=== PATIENT | male | born 1965 | race Caucasian/White ===

== ENCOUNTER 2017-01-11 13:31 | Inpatient (IN) | payer OTHER ==
[~2017-01-11] VITALS: Ht 175.3 cm; Wt 102.9 kg
[~2017-01-11 13:31] MED LIST: ASPIRIN 325 MG TAB PO SCH
[2017-01-11] MEDS ORDERED: METF10004 PO (13:50)
[2017-01-11] MEDS ORDERED: PRAV40TA2 PO (13:50)
[2017-01-11] MEDS ORDERED: RAMI1.25 PO (13:50)
[2017-01-11] MEDS ORDERED: PRAV10TA4 PO (13:50)
[2017-01-11 15:54] LABS: BASO # 0.1 K/mm3 (0.0-0.2); BASO % 0.9 % (0.0-1.0); EOS # 0.1 K/mm3 (0.0-0.50); EOS % 0.9 % (0.0-3.0); LARGE UNSTAINED CELL # 0.1 K/mm3 (0.0-0.4); LYMPH # 1.2 K/mm3 (1.5-4.5); LYMPH % 11.2 % (24.0-44.0); MEAN CORPUSCULAR HEMOGLOBIN 29.5 pg (27.0-33.0); MEAN CORPUSCULAR HGB CONC 32.9 g/dl (32.0-36.5); MEAN CORPUSCULAR VOLUME 89.7 fl (80.0-96.0); MONO # 0.3 K/mm3 (0.0-0.8); MONO % 2.9 % (0.0-5.0); NEUTROPHILS % 83.1 % (36.0-66.0); PLATELET COUNT, AUTOMATED 244 k/mm3 (150-450); RED CELL DISTRIBUTION WIDTH 13.4 % (11.5-14.5); WHITE BLOOD COUNT 9.6 K/mm3 (4.0-10.0)
[2017-01-11] MEDS ORDERED: IBUPOTC PO (15:56)
[2017-01-11] MEDS ORDERED: RAMI25CA PO (15:56)
[2017-01-11] MEDS ORDERED: PRAV20TA2 PO (15:56)
[2017-01-11] MEDS ORDERED: METF-415 PO (15:56)
[2017-01-11] MEDS ORDERED: ASPI1TAB PO (15:56)
[2017-01-11] MEDS ORDERED: DEXTROSE 50% 50 ML SYRINGE IV PRN (16:00)
[2017-01-11] MEDS ORDERED: ASPIRIN 81 MG CHEW TABLET PO ONE (16:00)
[2017-01-11] MEDS ORDERED: GLUCOSE 4 GM CHEW TABLET PO PRN (16:00)
[2017-01-11] MEDS ORDERED: IBUPROFEN 400 MG TAB PO PRN (16:00)
[2017-01-11] MEDS ORDERED: GLUCAGON FOR INJ 1 MG VIAL (J1610) SC PRN (16:00)
[2017-01-11] MEDS ORDERED: ONDANSETRON 4MG/2ML VIAL (J2405) IV PRN (16:00)
--- NOTE | 2017-01-11 16:03 | REP ---
CT Head without contrast HISTORY: Diplopia COMPARISON: None There is no intraparenchymal hemorrhage, acute infarct, mass or midline shift. The ventricular system is normal in appearance. There is no extra cerebral collection. There is no fracture. The visualized sinuses are clear. IMPRESSION: There is no intracranial lesion. Signed by Zachery Aviles MD 01/11/2017 02:49 P
[2017-01-11 16:12] LABS: INR 0.99
[2017-01-11 16:20] LABS: ANION GAP 6 MEQ/L (8-16); BLOOD UREA NITROGEN 15 MG/DL (7-18); CALCIUM LEVEL 9.4 MG/DL (8.5-10.1); CARBON DIOXIDE LEVEL 30 MEQ/L (21-32); CHLORIDE LEVEL 104 MEQ/L (98-107); CREATININE FOR GFR 1.17 MG/DL (0.70-1.30); GLOMERULAR FILTRATION RATE > 60.0 (>56); GLUCOSE, FASTING 199 MG/DL (70-105); POTASSIUM SERUM 4.4 MEQ/L (3.5-5.1); SODIUM LEVEL 140 MEQ/L (136-145)
[2017-01-11 16:38] LABS: CHOLESTEROL LEVEL 207 MG/DL (<200); TRIGLYCERIDES LEVEL 104 MG/DL (<150)
--- NOTE | 2017-01-11 16:46 | HPE ---
DATE OF ADMISSION: 01/11/2017 PRIMARY CARE PROVIDER: Dr. Cantu at [facility]. CHIEF COMPLAINT: Double vision. HISTORY OF PRESENT ILLNESS: The patient is a 51-year-old man who was out drinking with his friends last night. He tells me that he had six beers which was not uncharacteristic for him. He was in his usual state of health, went to sleep, woke up this morning and had blurry vision, tried rubbing his eyes, and he had double vision from the time he awoke that persisted and is worse when he attempts to gaze to the right. He has noticed that his left eye is droopy. Double vision resolves with closing one or both of his eyes. He has associated nausea when experiencing the double vision, but no vomiting. No fevers, chills, chest pain, shortness of breath, lightheadedness, dizziness, paralysis or paresthesias. He is otherwise in his usual state of health. PAST MEDICAL HISTORY: 1. Type 2 diabetes on metformin. 2. Hypertension. 3. Dyslipidemia. ALLERGIES: No known drug allergies. PAST SURGICAL HISTORY: 1. Tonsils removed in childhood. 2. Broken wrist in childhood. FAMILY HISTORY: Unable to be obtained as the patient was adopted. SOCIAL HISTORY: Denies tobacco use. He drank six beers last night, but he tells me that he does not drink every day. 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 HOME MEDICATIONS: - metformin 1 gram twice a day - ramipril 2.5 mg daily - pravastatin 20 mg daily REVIEW OF SYSTEMS: Negative other than in history of present illness (HPI). PHYSICAL EXAMINATION: VITAL SIGNS: Temperature 98.7, pulse 87, respiratory rate 18, blood pressure 123/74, oxygen saturation 98% on room air. GENERAL: He is an obese middle-aged man lying in bed at a 30-degree angle accompanied by a female friend. He does not appear to be in any acute distress. HEENT: He has left eyelid droop. His left eye does not adduct, but it does abduct. He is able to look up and down with eye movement. Both pupils are equal, round, and reactive to light. He has moist mucous membranes. No elevation of carotid artery pressure (CAP). Face is otherwise symmetric, and otherwise cranial nerves appear to be intact. CARDIOVASCULAR: S1, S2 regular. RESPIRATORY: Exam is clear. ABDOMEN EXAM: Obese. Bowel sounds are present. The abdomen is soft. EXTREMITIES: There is no clubbing, cyanosis or edema. NEUROLOGIC: Sensory, motor and gait testing are all intact. LABORATORY DATA: No labs drawn in the emergency room. IMAGING: The patient did have a CT scan of his head. The preliminary report reveals no acute disease. 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 1. Diabetic third nerve palsy. I did speak with Dr. Lockwood of neurology who informed me that he available only for consult by phone this weekend. He suggested aspirin 325 mg daily along with titrate of the statin dose. Give him Lipitor 80 times one, and then continue him on 40 mg daily to increase the intensity. Dr. Lockwood suggested trying the patient with an eye patch, and stated that usually improves in 4-8 weeks. The patient would likely benefit from further outpatient neurology workup. The patient is being admitted to the progressive care unit with every four hour neurologic checks. We will get a fairly thorough cerebrovascular accident (CVA) workup. I will check complete blood count (CBC), and complete metabolic profile (CMP), thyroid stimulating hormone (TSH), hemoglobin A1c, lipid panel, MRI, MRA, carotid Duplex, and start with an electrocardiogram (EKG). He does not have any cardiac symptoms and as such, I do not foresee any indication at this time for an echocardiogram. 2. Type 2 diabetes. We will check an A1c, place him on sliding-scale insulin with hypoglycemic protocol. Consistent carbohydrate 2-gram sodium diet. 3. Hypertension. Will continue with ramipril and monitor his blood pressure. He will be on a 2-gram sodium diet. 4. Deep venous thrombosis (DVT) prophylaxis. The patient will be on Lovenox. DISPOSITION: He is admitted to the progressive care unit to Dr. Ramirez's service, who will continue following the patient at 7 a.m. [facility]
[2017-01-11] MEDS: HumaLOG INSULIN (NovoLOG) PER UNIT SC SCH (17:30)
--- NOTE | 2017-01-11 18:50 | REPUSA ---
CLINICAL HISTORY: Double vision. TECHNIQUE: Realtime sonographic images were obtained in multiple projections. COMMENTS: Realtime examination demonstrates mild echogenic plaque at the bifurcation on the right and proximal right internal carotid artery. Mild echogenic plaque is also documented at the bifurcation on the left and proximal left internal ca rotid artery. Hemodynamic measurement shows no evidence of hemodynamically significant stenoses. The right ICA systolic/diastolic velocities are 68/20 cm/sec. The left ICA systolic/diastolic velocit ies are 62/21 cm/sec. The right IC/CC ratio is 0.8, the left IC/CC ratio is 0.6. External carotid arteries are unremarkable. Vertebral arteries are visualized and have normal antegra de flow. IMPRESSION: 1. Mild echogenic plaque formation at both carotid bifurcations with extension into the ICAs with est imated 0-39% stenosis. 2. No evidence of hemodynamically significant stenosis. Thank you for your kind referral of this patient.
[2017-01-11] MEDS ORDERED: HumaLOG INSULIN (NovoLOG) PER UNIT SC SCH (21:00)
[2017-01-11] MEDS ORDERED: ENOXAPARIN 40 MG/0.4 ML SYRINGE (J1650) SC SCH (21:00)
--- NOTE | 2017-01-11 21:02 | REP ---
MRA BRAIN WITHOUT CONTRAST: HISTORY: Diplopia. 3D [id number] MR angiography was performed at the level of the [place]. There is no aneurysm, arteriovenous malformation or atherosclerotic lesion. Major intracranial vessels are patent. The left vertebral artery is dominant. IMPRESSION:Normal MRA brain. Signed by Zachery Aviles MD 01/12/2017 07:55 A
--- NOTE | 2017-01-11 21:09 | REP ---
MR BRAIN WITHOUT CONTRAST: HISTORY: Diplopia. COMPARISON: CT 01/11/2017. Several punctate areas of increased signal intensity on T2 weighted images are present in the periventricular and subcortical white matter. This represents small vessel ischemic disease. There is no intraparenchymal hemorrhage, infarct, mass or midline shift. The ventricular system is normal in appearance. There is no extracerebral collection. Mucosal thickening is present in the ethmoid, maxillary and left sphenoid sinuses and left mastoid air cells. IMPRESSION:Minimal small vessel ischemic disease. Signed by Zachery Aviles MD 01/12/2017 07:55 A
[2017-01-11 22:40] VITALS: BP 122/75
[2017-01-11 23:59] VITALS: BP 135/68
[2017-01-12 04:00] VITALS: BP 121/77
[2017-01-12 07:59] VITALS: BP 120/55
[2017-01-12 08:00] VITALS: BP 126/75
[2017-01-12] MEDS: HumaLOG INSULIN (NovoLOG) PER UNIT SC SCH ×2 (08:00→12:08)
--- NOTE | 2017-01-12 08:42 | DS.PDOC ---
Discharge Summary General Date of Admission Jan 11, 2017 at 15:47 Date of Discharge Discharge Summary PROCEDURES PERFORMED DURING STAY: None ADMITTING DIAGNOSES: 1. Diabetic third nerve palsy 2. DM2 3. HTN DISCHARGE DIAGNOSES: 1.Diabetic third nerve palsy 2. DM2 3. HTN COMPLICATIONS/CHIEF COMPLAINT: Third Nerve Palsy Of Left Eye. HISTORY OF PRESENT ILLNESS: 51-year-old man presented to ED with CC of blurry and double vision worsened with rightward gaze of acute onset after he had been out the prevoius night drinking alcohol with friends. HOSPITAL COURSE: During the course of the hospital stay, the pts blurred vision did improve. Neurology was consulted but was unable to come into the hospital and thus recommendations were given over the phone to give the pt aspirin and statin therapy, which was done. The pt had a CVA work up which included brain MRI, MRA, carotid u/s and CT head which were negative for concerns of stroke. Pts HgA1c was 7.2 w/fasting glucose 199 and thus tighter control of his dm2 is recommended, cardiac markers were neg. during hospital stay. DISCHARGE MEDICATIONS: Please see below. ALLERGIES: Please see below. PHYSICAL EXAMINATION ON DISCHARGE: VITAL SIGNS: Please see below. GENERAL: AAOx3, plesant, conversant, states he is feeling well. HEENT: EOMI, PERRLA, nares patent b/l, neck supple, trachea midline, left eye tracks to midline only on right intentional gaze, no nystagmus appreciated CARDIOVASCULAR EXAMINATION: RRR, normal s1 and s2, no murmurs, gallops appreciated. RESPIRATORY EXAMINATION: good air expansion and effort, no wheezing, rales or rhonchi appreciated ABDOMINAL EXAMINATION: nabsx4, no distension, no rebound ridgity or guarding. no organomegaly EXTREMITIES: no cyanosis, clubbing or edema appreciated SKIN: intact NEUROLOGICAL EXAMINATION: no deficit appreciated PSYCHIATRIC EXAMINATION: normal affect and demeanor LABORATORY DATA: Please see below. IMAGING: Head CT 01-11-17 IMPRESSION: There is no intracranial lesion. Brain MRI 01-11-17 IMPRESSION:Minimal small vessel ischemic disease. Brain MRA 01-11-17 IMPRESSION:Normal MRA brain. Vascular Carotid u/s 01-11-17 IMPRESSION: 1. Mild echogenic plaque formation at both carotid bifurcations with extension into the ICAs with estimated 0-39% stenosis. 2. No evidence of hemodynamically significant stenosis. Thank you for your kind referral of this patient. PROGNOSIS: stable ACTIVITY: As tolerated DIET: Diabetic diet-low carb DISCHARGE PLAN:home DISPOSITION: stable DISCHARGE INSTRUCTIONS: 1. f/u PCP within 1 week of d/c 2. May wear eye patch as per Neurology recommendations ITEMS TO FOLOWUP ON ON OUTPATIENT: 1. F/u w/ pcp within one week d.c DISCHARGE CONDITION: Stable TIME SPENT ON DISCHARGE: Greater than 20 minutes. Vital Signs/I&Os Vital Signs Date Time Temp Pulse Resp B/P (MAP) Pulse Ox O2 Delivery O2 Flow Rate FiO2 01/12/17 07:59 120/55 01/12/17 04:00 98.6 68 18 98 Room Air I&O- Last 24 Hours up to 6 AM 01/12/17 06:00 Intake Total 360 ml Output Total 550 ml Balance -190 ml Laboratory Data Labs 24H Laboratory Tests 2 01/11/17 15:32: White Blood Count 9.6, Red Blood Count 4.39, Hemoglobin 13.0L, Hematocrit 39.4L , Mean Corpuscular Volume 89.7, Mean Corpuscular Hemoglobin 29.5, Mean Corpuscular Hemoglobin Concent 32.9, Red Cell Distribution Width 13.4, Platelet Count 244, Neutrophils (%) (Auto) 83.1H, Lymphocytes (%) (Auto) 11.2L, Monocytes (%) (Auto) 2.9, Eosinophils (%) (Auto) 0.9, Basophils (%) (Auto) 0.9, Neutrophils # (Auto) 8.0H, Lymphocytes # (Auto) 1.2L, Monocytes # (Auto) 0.3, Eosinophils # (Auto) 0.1, Basophils # (Auto) 0.1, Large Unclassified Cells % 1.0 , Large Unclassified Cells # 0.1, Prothrombin Time 13.2, Prothromb Time International Ratio 0.99, Activated Partial Thromboplast Time 24.6L, Anion Gap 6L, Glomerular Filtration Rate > 60.0, Estimated Mean Plasma Glucose 160H, Hemoglobin A1c 7.2H, Blood Urea Nitrogen 15, Creatinine 1.17, Sodium Level 140, Potassium Level 4.4, Chloride Level 104, Carbon Dioxide Level 30, Calcium Level 9.4, Total Creatine Kinase 72, Creatine Kinase MB 1.0, Creatine Kinase MB Relative Index 1.38, Troponin I < 0.02, Triglycerides Level 104, LDL Cholesterol 124.2H, Total Cholesterol 207H, Non-HDL Cholesterol (LDL + VLDL) 145 , Total HDL Cholesterol 62, Cholesterol/HDL Ratio 3.338, Thyroid Stimulating Hormone (TSH) 1.200 01/11/17 22:40: Bedside Glucose (Misc Panel) 119H 01/12/17 06:21: Bedside Glucose (Misc Panel) 130H CBC/BMP Laboratory Tests 01/11/17 15:32 Red Blood Count 4.39, Mean Corpuscular Volume 89.7, Mean Corpuscular Hemoglobin 29.5, Mean Corpuscular Hemoglobin Concent 32.9, Red Cell Distribution Width 13.4 , Neutrophils (%) (Auto) 83.1 H, Lymphocytes (%) (Auto) 11.2 L, Monocytes (%) ( Auto) 2.9, Eosinophils (%) (Auto) 0.9, Basophils (%) (Auto) 0.9, Neutrophils # ( Auto) 8.0 H, Lymphocytes # (Auto) 1.2 L, Monocytes # (Auto) 0.3, Eosinophils # ( Auto) 0.1, Basophils # (Auto) 0.1, Calcium Level 9.4, Total Creatine Kinase 72 FSBS Laboratory Tests Test 01/11/17 22:40 01/12/17 06:21 Range/Units Bedside Glucose (Misc Panel) 119 130 70-105 MG/DL Discharge Medications Scheduled Metformin Hydrochloride (Metformin HCl ER) 1,000 Mg Tab, 1,000 MG PO BID, ( Reported) Pravastatin Sodium (Pravastatin Sodium) 20 Mg Tab, 20 MG PO DAILY, (Reported) Ramipril (Ramipril) 2.5 Mg Cap, 2.5 MG PO DAILY, (Reported) Scheduled PRN Aspirin (Aspirin 81) 81 Mg Tab, 243 MG PO DAILY PRN for PAIN, (Reported) Ibuprofen (Ibuprofen) 200 Mg Tab, 400 MG PO for PAIN, (Reported) Allergies Coded Allergies: No Known Allergies (Unverified , 01/11/17) ZUNILDA BEE DO Jan 12, 2017 08:42
[2017-01-12] MEDS ORDERED: RAMIPRIL 2.5 MG CAP PO SCH (09:00)
[2017-01-12] MEDS ORDERED: ASPIRIN 81 MG CHEW TABLET PO SCH (09:00)
[2017-01-12] MEDS ORDERED: ATORVASTATIN 20 MG TAB PO SCH (09:00)
[2017-01-12] MEDS ORDERED: ASPIRIN 325 MG TAB PO SCH (09:00)
[2017-01-12 12:00] VITALS: BP 118/55
--- NOTE | 2017-01-12 18:50 | ECGEPIP ---
Stationary ECG Study [facility] Test Date: 2017-01-11 Pat Name: JOSE CANNON Department: Room: [place] [address] Gender: M Composite Technician: zacarias : 1965 Requested By: GATO TORRES Order Number: [id number] Reading MD: Gurvinder [place] Measurements Intervals Dexter Rate: 69 P: 26 OK: 128 QRS: 32 QRSD: 90 T: 5 QT: 388 QTc: 417 Interpretive Statements SINUS RHYTHM Normal Electronically Signed On 01-12-2017 18:49:37 EDT by Gurvinder [place]berg
== END 2017-01-12 16:29 | disposition home or self-care (01) | DRG 48 ==
LOC: M ED 13:31 → M ED INP 15:47 → M PCU 22:17
PROVIDERS: ADMIT Internal Medicine; ATTEND Internal Medicine Nephrology
DX: E11.41 Type 2 diabetes mellitus with diabetic mononeuropathy (principal); I10 Essential (primary) hypertension; E66.9 Obesity, unspecified; E78.5 Hyperlipidemia, unspecified; Z79.84 Long term (current) use of oral hypoglycemic drugs; Z79.899 Other long term (current) drug therapy